=== PATIENT | female | born 1930 | race Caucasian/White ===

== ENCOUNTER 2016-08-16 18:24 | Emergency (ER) | payer MEDICARE ==
[~2016-08-16 18:24] MED LIST: AMARYL1 MG PO; ARICEPT10 PO; ASAB PO; B121000P IJ; BACDS PO; BUSPAR5 PO; CAT1 PO; CELEXA20 PO; COREG25 PO; COZAAR100 MG PO; DITRO5 PO; GLUCOPHAGE1000 MG PO; GLUCPH PO; IMOD PO; LOTREL1 CA4 PO; MICROZIDE PO; MUCINEX DM1 TAB PO; NAMENDA5 PO; NAMENXR28 PO; NORV10 PO; PROAIR HFA INH; T PO; ZOFRAN4 PO; [UNRECOGNIZED DRUG - OTHER] TOP
[2016-08-16 20:36] LABS: BASOPHILS 0.2 %; BASOPHILS ABSOLUTE 0.03 10/3/uL (0.0-0.16); EOSINOPHILS 0.5 %; EOSINOPHILS ABSOLUTE 0.07 10/3/uL (0.0-0.53); HEMATOCRIT 31.8 % (36.0-48.0); IMMATURE GRANULOCYTES 0.3 %; IMMATURE GRANULOCYTES ABSOLUTE 0.04 10/3/uL (0.0-0.11); LYMPHOCYTES 19.8 %; LYMPHOCYTES ABSOLUTE 3.01 10/3/uL (0.67-4.30); MEAN CORPUS HGB CONC 31.4 g/dL (32.0-36.0); MEAN CORPUSCULAR HEMOGLOB 29.4 pg (26.0-34.0); MEAN PLATELET VOLUME 10.4 fL (9.2-13.0); MONOCYTES 8.7 %; MONOCYTES ABSOLUTE 1.32 10/3/uL (0.21-1.20); NEUTROPHILS 70.5 %; PLATELET COUNT 271 10/3/uL (150-400); RBC DISTRIBUTION WIDTH 15.4 % (12.0-16.0); WHITE BLOOD CELLS 15.2 10/3/uL (4.5-10.5)
[2016-08-16 20:38] LABS: MANUAL DIFF NO %; MEAN CORPUSCULAR VOLUME 93.5 fL (80-100)
[2016-08-16 20:46] LABS: PROTIME (NOT ORD) 13.4 SEC (12.0-14.5)
[2016-08-16 20:50] LABS: PARTIAL THROMBO TIME 22.9 SEC (22.5-37.2)
[2016-08-16 20:53] LABS: BUN (BLOOD UREA NITROGEN) 30 MG/DL (6-23); CALCIUM, SERUM 8.7 MG/DL (8.5-10.4); CHEST PAIN PROFILE TAT 0 Hrs 23 Mins; CHLORIDE, SERUM 108 MMOL/L (96-112); CO2 (CARBON DIOXIDE) 25 MMOL/L (24-34); CREATININE 1.74 MG/DL (0.55-1.02); GFR AFRICAN AMERICAN 30 ML/MIN (>=60); GFR NON AFRICAN AMERICAN 26 ML/MIN (>=60); POTASSIUM, SERUM 4.8 MMOL/L (3.5-5.3); SODIUM, SERUM 140 MMOL/L (135-148); TROPONIN I 0.02 NG/ML (<0.05)
[2016-08-16 20:54] LABS: GLUCOSE, SERUM 82 MG/DL (60-99)
[2016-08-16 21:29] LABS: ALLENS TEST Pos; BE (BASE EXCESS) -1.6 MEQ/L (0 +/- 2.5); CARBOXYHEMOGLOBIN 0.6 % (0-3); DEVICE NC; HCO3 (ACTUAL BICARBONATE) 19.3 MEQ/L (23-27); HEMOBLOGIN CONTENT 10.5 G/DL (12-16); INSTRUMENT SERIAL # 8087; O2 CONTENT 14.5 VOL% (18-24); OPERATOR ID 33449; PCO2 (CO2 TENSION) 22 MMHG (35-45); PO2 (O2 TENSION) 94 MMHG (79-93); SAMPLE Arterial; pH 7.56 (7.37-7.43)
[2016-08-16 21:35] LABS: D-DIMER QUANTITATIVE 14.39 ug/mLFEU (< 0.50)
[2016-08-16] MEDS ORDERED: SEROQUEL50 MG PO (22:50)
[2016-08-16] MEDS ORDERED: IMOD PO (22:51)
[2016-08-16] MEDS ORDERED: LANTUS SC (22:51)
[2016-08-16] MEDS ORDERED: ATV.5 PO (22:52)
[2016-08-16] MEDS ORDERED: T PO (22:53)
[2016-08-16] MEDS ORDERED: NAMENXR28 PO (22:55)
[2016-08-16] MEDS ORDERED: NORV10 PO (22:55)
[2016-08-16] MEDS ORDERED: KLOR-CON M2020 MEQ PO (22:57)
[2016-08-16] MEDS ORDERED: HALF81 PO (22:57)
[2016-08-16] MEDS ORDERED: PROLOP100 PO (22:58)
[2016-08-16] MEDS ORDERED: CAT2 PO (23:00)
[2016-08-16] MEDS ORDERED: ARICEPT10 PO (23:01)
[2016-08-16] MEDS ORDERED: DIOV160 PO (23:01)
[2016-08-16] MEDS ORDERED: BUSPAR10 PO (23:02)
[2016-08-16] MEDS ORDERED: APRES50 PO (23:02)
[2016-08-16] MEDS ORDERED: B121000P IM (23:05)
== END 2016-08-17 02:48 | disposition home or self-care (01) ==
LOC: ER 18:24
PROVIDERS: Emergency Medicine
DX: S42.212A Unspecified displaced fracture of surgical neck of left humerus, initial encounter for closed fracture (principal); J44.9 Chronic obstructive pulmonary disease, unspecified; I50.9 Heart failure, unspecified; F32.9 Major depressive disorder, single episode, unspecified; E11.9 Type 2 diabetes mellitus without complications; Z79.4 Long term (current) use of insulin; Z79.82 Long term (current) use of aspirin; Z79.899 Other long term (current) drug therapy; W19.XXXA Unspecified fall, initial encounter
CPT/HCPCS: 36600; 71010; 71275; 73030-LT; 80048; 82805; 83735; 83880; 84484; 85025; 85379; 85610; 85730; 99285; A9270-GY; Q9967